=== PATIENT | female | born 1975 | race Caucasian/White ===

== ENCOUNTER 2021-06-22 16:20 | Outpatient (REF) | payer MEDICARE, MEDICAID, SELFPAY | END 2021-06-22 16:21 | disposition home or self-care (01) | LOC: HO.LNP 16:20 | PROVIDERS: Visit Provider Physician Assistant Medical | DX: Z20.822 Contact with and (suspected) exposure to COVID-19 (principal) | CPT/HCPCS: U0003; U0005 ==

== ENCOUNTER → 2022-04-27 12:56 | Outpatient (BNVA) | payer MEDICARE, MEDICAID, SELFPAY | PROVIDERS: PCP Internal Medicine; Visit Provider Nurse Practitioner Family | DX: G47.9 Sleep disorder, unspecified (principal); G47.21 Circadian rhythm sleep disorder, delayed sleep phase type; G25.81 Restless legs syndrome; R06.83 Snoring; R40.0 Somnolence | CPT/HCPCS: 99202 ==

== ENCOUNTER → 2022-05-18 20:43 | Outpatient (REF) | payer MEDICARE, MEDICAID, SELFPAY | LOC: HO.SL 20:43 | PROVIDERS: Visit Provider Nurse Practitioner Family | DX: G47.9 Sleep disorder, unspecified (principal); G47.21 Circadian rhythm sleep disorder, delayed sleep phase type; G25.81 Restless legs syndrome; R06.83 Snoring; R40.0 Somnolence | CPT/HCPCS: 95810 ==

== ENCOUNTER → 2022-06-27 12:49 | Outpatient (BNVA) | payer MEDICARE, MEDICAID, SELFPAY | PROVIDERS: Visit Provider Nurse Practitioner Family | DX: G25.81 Restless legs syndrome (principal); G47.21 Circadian rhythm sleep disorder, delayed sleep phase type | CPT/HCPCS: 99212 ==

== ENCOUNTER 2025-02-03 13:15 | Outpatient (AMB) | payer MEDICARE, MEDICAID, SELFPAY ==
[2025-02-03 13:17] VITALS: PULSE 82; O2SAT 98; BMI 34.2
--- NOTE | 2025-02-03 13:17 | MHC.OFFVIS ---
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 Patient was last seen 06/2022. Patient states hard time falling asleep. Insomnia and RLS are bad.(has list of medication of tried medication). Sleep study was done after appt in 2021. Pt also has MS. no witnessed apnea/snoring. Accompanied by: Self / Same As Patient Allergies latex (LATEX) Allergy (Unknown, Verified 02/03/25 13:21) RASH HPI Comments Details: 49 y/o female patient with MS on ofatumumab/ Kesimpta presents for follow up of PSG sleep study and insomnia. 2021- PSG sleep study result was significant for frequent periodic limb movements for PLM index of 49/hr but only few were associated with arousals. She is a current smoker over the last few months 2 or less cigarettes /day. She denies falls and gets off balance when changing position, gets nausea and vertigo with inverted positions. Goes to bed at 11pm, can not fall asleep until 3am ruminates all night long, brain will not turn off. She has RLS and it keeps her up all night, she finds relief with Tizanidine and Magnesium. Pt states that she has jerky leg movements and wakes up frequently. She has tried many medications including malatonin, gabapentin, ropinirole, pramipexole, baclofen and clonazepam to manage restless legs symptoms but nothing helped. Pt is not sure about the dosage, but remember that she did not tolerate gabapentin. ? Finally a video on [employer], demonstrated tying a sock around her foot, and this alleviated the RLS symptoms of neuropathy. She still has the symptoms of burning, tingling and jumping legs however infrequently now 2-3/month. Her mood is very relaxed, she is an easy going individual. Memory is poor with brainfog, and word finding difficulties, can't process information. She tried therapy in the past to deal with childhood trauma, however it made her thoughts raw , and more persistent at night. She can stay up until 4am reading and is constantly fatigued then gets depressed. [facility] Medical History Emphysema lung COPD (chronic obstructive pulmonary disease) Surgical History Status post breast reduction Family History Mother Lung cancer Diabetes Brother Diabetes Social History Alcohol intake: current Alcohol intake frequency: a few times a month Patient Tobacco Use Status: Current everyday Tobacco user Substance Use Type: Marijuana Review of Systems ENT Reports Normal hearing present Neuro Reports Normal hearing present Physical Exam Vital Signs: Last Vital Signs Pulse 82 02/03/25 13:17 Pulse Ox 98 02/03/25 13:17 Oxygen Delivery Method Room Air 02/03/25 13:17 BMI result Body Mass Index 34.2 Const General: cooperative and tired appearing Nutritional Appearance: overweight Orientation/consciousness: patient oriented x3 Neck Neck: Yes full ROM and Yes supple Resp Effort & Inspection: normal respiratory effort and able to speak in complete sentences Neuro General: patient oriented x3 Cranial nerves: Yes Bilaterally intact EOM present, Yes Midline tongue present, Yes Normal hearing present, Yes Ability to bilaterally rotate head present and Yes Ability to bilaterally elevate shoulders present Cognition (Neuro): normal cognition Gait exam (Neuro): Normal gait present Psych Appearance: grossly normal Mental Status: mental status grossly normal Speech and movement: Normal speech and movement present Affect: normal affect Results Reviewed Results Reviewed: PSG Assessment & Plan Assessment & Plan (1) Insomnia: Code(s): G47.00 - Insomnia, unspecified Category: Medical Qualifiers: Insomnia type: primary Qualified Code(s): F51.01 - Primary insomnia (2) Restless legs syndrome: Comment: tizanidine and magnesium hepls along with her sock tying trick. Code(s): G25.81 - Restless legs syndrome Category: Medical (3) Delayed sleep phase syndrome: Code(s): G47.21 - Circadian rhythm sleep disorder, delayed sleep phase type Category: Medical (4) Excessive daytime sleepiness: Comment: CBC/CMP/ LFT / B12/ Ferritin / Code(s): G47.19 - Other hypersomnia Category: Medical (5) Daytime sleepiness: Code(s): R40.0 - Somnolence Category: Medical Plan PSG to evaluate for [place], she has not been in office since 2021. Patient education provided re: sleep hygiene Read the book Say Good Night to Insomnia and practice the 6 weeks sleep hygiene program. [employer] life coach. Jessica. [email or web address] sleep specialist. Labs : LFT - CBC- Ferritin- Nika - MS managed by [facility] Dr. Drew and Nicole Wilkinson. MRI annually for lesions. She is on Kesimptaa pen 20 mg sub qhs monthly. Orders: Orders RT PSG in-lab sleep study 02/03/25 G25.81 - Restless legs syndrome, G47.19 - Other hypersomnia Vitamin D 25-OH Total Today F51.01 - Primary insomnia, G25.81 - Restless legs syndrome Complete Blood Count no Diff Today F51.01 - Primary insomnia, G25.81 - Restless legs syndrome Comprehensive Met. Panel Today F51.01 - Primary insomnia, G25.81 - Restless legs syndrome Drug Screen Urine Today F51.01 - Primary insomnia, G25.81 - Restless legs syndrome, G47.19 - Other hypersomnia Vitamin B12 and Folate Today F51.01 - Primary insomnia, G25.81 - Restless legs syndrome Homocysteine Today G47.9 - Sleep disorder, unspecified, R53.83 - Other fatigue Methylmalonic Acid Today G47.9 - Sleep disorder, unspecified, R53.83 - Other fatigue Medications: New eszopiclone (Lunesta) take one mg of Lunesta daily 1 hour prior to bedtime. 1 mg PO BEDTIME 1 month 30 tabs 0RF insomnia MDD 1mg G47.00 - Insomnia, unspecified, R40.0 - Somnolence Patient Instructions: Sleep Hygiene provided: set a scheduled bedtime and wake time to help regulate the circadian rhythm and balance the release of pituitary hormones. Sleep in a dark room, temperatures below 68 degrees, and no devices n bed. Limit caffeinated products 6 hours prior to bed, and limit fluids 2-4 hours prior to bed. Gentle night yoga, diffusing essential oils, and playing soft music can be relaxing. Coding Level of Care Code New Pt Level 4 (94762) Diagnoses Primary insomnia F51.01 Insomnia type: primary Restless legs syndrome G25.81 Delayed sleep phase syndrome G47.21 Excessive daytime sleepiness G47.19 Daytime sleepiness R40.0 Time Spent (min) 30 Comment evaluation Sleep Questionnaire Difficulty falling asleep: Yes Difficulty staying asleep?: Yes Number of arousals: >5 Snoring: Yes Witnessed apneas: No Gasping arousals: No Nocturia: No GERD: No Vivid dreams: No Acting out dreams: No Abnormal behavior in sleep: No Abnormal movements in sleep: Yes (rls/ plmd) Morning headaches: No Excessive daytime sleepiness: Yes Daytime naps: Yes Restless legs: Yes Hallucinations: No Sleep paralysis: No Drop attacks: No Sleep Study: Yes CPAP: No
--- OUTSIDE RECORDS SUMMARY | 2025-02-03 13:58 | XMS_ITS | Clinical Summary ---
Author Organization 175 [facility] Address [address] [place] [address] Phone Care Team Providers Care Railway Switchman Name Role Phone Misti Perkins MD Primary Care Provider [phone] Allergies Active Allergy Reactions Criticality Noted Date Comments Latex 12/31/2020 Medications buPROPion XL (WELLBUTRIN XL) 300 mg 24 hr tablet 1 po qd 05/25/20 23 Active tiZANidine (ZANAFLEX) 4 mg capsule Take 1 capsule (4 mg total) by mouth 3 (three) times a day. Active Ofatumumab (Kesimpta Pen) 20 mg/0.4 mL pen injector injection Inject 0.4 mL (20 mg total) under the skin every 30 (thirty) days. 0.4 mL 5 5 1:13 PM EDT 09/06/19 25 Active prazosin (MINIPRESS) 1 mg capsule Take 1 capsule (1 mg total) by mouth 3 (three) times a day. Active riboflavin (VITAMIN B2) 400 mg tablet Take 1 tablet (400 mg total) by mouth 1 (one) time each day. 60 tablet 2 09/28/19 25 Active ergocalcifero l (VITAMIN D-2) 1,250 mcg (50,000 unit) capsule Take 1 capsule (50,000 Units total) by mouth 1 (one) time per week. 4 each 10/09/19 25 026 Active albuterol HFA (PROAIR HFA ; PROVENTIL HFA ; VENTOLIN HFA) 90 mcg/actuation inhaler Inhale 2 puffs by mouth every 6 (six) hours if needed for wheezing. 6.7 g 10/19/19 026 Active fluticasone propionate (FLONASE) 50 mcg/actuation nasal spray Administer 1 spray into each nostril 1 (one) time each day. Shake gently. Before first use, prime pump. After use, clean tip and replace cap. 16 g 10/19/19 026 Active Additional Information Patient not taking.Reported on 01/20/2025 ramelteon (ROZEREM) 8 mg tablet TAKE 1 TABLET EVERY DAY BY ORAL ROUTE AT BEDTIME FOR 30 DAYS, FOR INSOMNIA. 10/08/19 25 Active ibuprofen (ADVIL,MOTRIN ) 600 mg tablet Take 1 tablet (600 mg total) by mouth every 8 (eight) hours if needed for mild pain. 30 tablet 3 11/22/19 25 Active magnesium oxide (MAG-OX) 400 mg (241.3 elemental magnesium) tablet TAKE 1 TABLET BY MOUTH 1 TIME EACH DAY. 30 tablet 2 12/31/19 25 Active tirzepatide, weight loss, (Zepbound) 5 mg/0.5 mL injection INJECT 0.5 ML (5 MG TOTAL) UNDER THE SKIN EVERY 7 DAYS 2 mL 01/14/20 25 Active amphetamine-d extroamphetam ine (ADDERALL) 10 mg tablet 1 po bid 60 each 01/14/20 25 Active fluticasone-u meclidinium-v ilanterol (Trelegy Ellipta) 100-62.5-25 mcg inhaler Inhale 1 puff (100 mcg total) by mouth 1 (one) time each day. Rinse mouth with water after use to reduce aftertaste and incidence of candidiasis. Do not swallow. 1 each 01/21/20 026 Active mirtazapine (REMERON) 7.5 mg tablet Take 1 tablet (7.5 mg total) by mouth every night at bedtime. 025 Discontinued(Th erapy completed) traZODone (DESYREL) 50 mg tablet 09/30/19 23 025 Discontinued(Th erapy completed) PARoxetine (PAXIL) 10 mg tablet Take 1 tablet (10 mg total) by mouth at bedtime. 04/23/20 24 025 Discontinued(Th erapy completed) SUMAtriptan (IMITREX) 50 mg tablet Take 1 tablet (50 mg total) by mouth 1 (one) time if needed for migraine (may repeat x1) for up to 1 dose. May repeat dose once in 2 hours if no relief. Do not exceed 2 doses in 24 hours. 9 tablet 3 09/28/19 25 025 Discontinued( erapy completed) tirzepatide, weight loss, (Zepbound) 5 mg/0.5 mL injection Inject 0.5 mL (5 mg total) under the skin every 7 (seven) days. 2 mL 12/14/19 25 025 Discontinued amphetamine-d extroamphetam ine (ADDERALL) 10 mg tablet 1 po bid 60 each 12/17/19 25 025 Discontinued(Re order) azithromycin (Zithromax Z-Vignesh) 250 mg tablet Take 2 tablets (500 mg total) by mouth 1 (one) time each day for 1 day, THEN 1 tablet (250 mg total) 1 (one) time each day for 4 days. 6 each 01/21/20 25 025 Active Problems Problem Noted Date Diagnosed Date RLS (restless legs syndrome) 09/26/2024 Other hyperlipidemia 09/26/2024 Class 1 obesity with serious comorbidity and body mass index (BMI) of 31.0 to 31.9 in adult 09/26/2024 Vitamin D deficiency 12/18/2013 Multiple sclerosis, relapsin g-remitting ([facility] V24, [facility] V28) 12/17/2013 Overview (09/22/2024): Diagnosed in 11/2013, follows with Dr armstrong, was given IV Solumedrol for 3 days.Started on Copaxone injections As of January 2021, sees [place] Encounters Date Type Department Care Team Description 01/27/2025 3:00 PM EDT Nutrition Bariatric Surgery - [address] [phone] Angelina Bishop, SHANNON Class 1 obesity with serious comorbidity and body mass index (BMI) of 31.0 to 31.9 in adult, unspecified obesity type (Primary Dx) 01/20/2025 2:15 PM EDT Office Visit Pulmonolgy - [place] 175 [facility] [address] [place] [address] Heydi Aviles MD Chronic obstructive pulmonary disease, unspecified COPD type (CMS/HCC V24, CMS/HCC V28) (Primary Dx); Multiple sclerosis, relapsing-remitting ([facility]/HCC V24, CMS/HCC V28) 01/13/2025 Telephone [facility] 175 [facility] [address] [place] [phone] Sona Plasencia PA 12/31/2024 1:30 PM EDT Office Visit [facility] 175 [facility] [address] [place] [phone] Sona Plasencia PA Multiple sclerosis ([facility] V24, [facility] V28) (Primary Dx) 12/10/2024 2:14 PM EDT - 12/10/2024 11:59 PM EDT Hospital Encounter [facility] CT Scan [address] [place] [phone] Encounter for screening for malignant neoplasm of respiratory organs; Nicotine dependence, cigarettes, uncomplicated Discharge Disposition: Home or Self Care 12/10/2024 1:45 PM EDT Office Visit Lung Screening Program - [place] [address] [facility] [address] [place] [phone] Ana Heath, ELISABETH Tobacco abuse 11/27/2024 2:00 PM EDT Nutrition Bariatric Surgery - [place] 175 [facility] [address] [place] [phone] Angelina Bishop, SHANNON Class 1 obesity without serious comorbidity with body mass index (BMI) of 33.0 to 33.9 in adult, unspecified obesity type (Primary Dx) 11/21/2024 2:00 PM EDT Ancillary Procedure Pulmonolgy - [place] 175 [facility] [address] [place] [phone] CARRERA (dyspnea on exertion); Tobacco abuse 11/20/2024 1:30 PM EDT Office Visit Obstetrics & Gynecology - [address] [phone] Ruthie Calles CNM Encounter for well woman exam with routine gynecological exam (Primary Dx); Screening breast examination; Screening for cervical cancer; Current tobacco use from Last 3 Months Immunizations Name Administration Dates Next Due Influenza trivalent, 0.5mL, preservative free (Fluarix; FluLaval; Fluzone) ages 6mo and older (Afluria) 3 years and older 04/20/2015,05/21/2014,04/12/2012 Tdap Tetanus diptheria acell ular pertussis (Boostrix; Adacel) 7yo and older 12/15/2014 Surgical History Surgery Date Site/Laterality Comments BREAST SURGERY REDUCTION MAMMAPLASTY SCREENING MAMMOGRAM 03/28/2023 Bilateral Medical History Medical History Date Comments MS (multiple sclerosis) ([facility] V24, [facility] V28) DX:MS (multiple sclerosis) ( [facility]) Vitamin D deficiency 12/18/2013 RLS (restless legs syndrome) 09/26/2024 Family History Medical History Relation Name Comments Diabetes Brother No Known Problems Maternal Grandfather Stroke Maternal Grandmother Diabetes Mother Lung cancer Mother Multiple sclerosis Neg Hx Relation Name Status Comments Brother Alive Maternal Grandfather Alive Maternal Grandmother Mother Social History Tobacco Use Types Packs/Day Years Used Date Smoking Tobacco: Every Day Cigarettes 1 32.6 Started: 1992 Smokeless Tobacco: Current Comments:Smoking 2 cigs cipriano y Alcohol Use Standard Drinks/Week Comments Yes 0 (1 standard drink = 0.6 oz pur e alcohol) Comments No Sex and Gender Information Value Date Recorded Sex Assigned at Not on file Legal Sex Female 8:19 PM EST Gender Identity Not on file Sexual Orientation Not on file Obstetrics History Para Term AB IAB SAB Ectopic Multiple Livin g Live Births 1 1 1 1 1 Date Outcome GA Total Labor Labor/2nd/3rd Weight Sex Type Anes PTL Zamzam A1 A5 Name Clin 2001 Term M Vag-S pont Living Last Filed Vital Signs Vital Sign Reading Time Taken Comments Blood Pressure 126/82 01/20/2025 2:54 PM EDT Pulse 90 01/20/2025 2:54 PM EDT Temperature 36.4 C (97.6 F) 01/20/2025 2:54 PM EDT Respiratory Rate 20 01/20/2025 2:54 PM EDT Oxygen Saturation 95% 01/20/2025 2:54 PM EDT Inhaled Oxygen Concentration - - Weight 84.4 kg (186 lb) 01/27/2025 2:56 PM EDT Height 162.6 cm (5' 4 ) 01/20/2025 2:54 PM EDT Body Mass Index 31.93 01/20/2025 2:54 PM EDT Plan of Treatment Upcoming Encounters Date Type Department Care Team (Late st Contact Info) Description 02/20/2025 2:00 PM EDT Office Visit Bariatric Surgery - [place] [address] [phone] Tiffanie Garcia MD [address] [phone] 03/13/2025 1:40 PM EDT Appointment Radiology Department [address] [phone] 04/24/2025 2:30 PM EDT Nutrition Bariatric Surgery - [place] [address] [phone] Angelina Bishop, RD [address] [phone] 05/28/2025 3:45 PM EST Office Visit Pulmonolgy - [place] [address] [phone] Heydi Aviles MD [address] [phone] 07/03/2025 3:30 PM EST Office Visit [facility] [place] [address] [phone] Dale Bauman MD [address] [phone] Health Maintenance Due Date Last Done Comments Hepatitis B Vaccines (1 of 3 - 19+ 3-dose series) 1993 Pneumococcal Vaccine: 50+ Years (1 of 2 - PCV) 1993 Colorectal Cancer Screening: Colonoscopy 06/24/2022 HIV Screening 06/24/2022 Hepatitis C Screening 06/24/2022 Medicare Annual Wellness Visit 06/24/2022 Social Influencers of Health Screening 06/24/2022 COVID-19 Vaccine ( - season) 2024 Depression Screening 07/17/2024 Zoster Vaccines (1 of 2) 2024 DTaP,Tdap,and Td Vaccines (2 - Td or Tdap) 12/15/2024 12/15/2014 Influenza Vaccine (#1) 2025 5, 05/21/2014, 04/12/2012 Lung Cancer Screening (Low Dose CT) 12/10/2025 12/10/2024 Breast Cancer Screening 03/11/2026 03/11/20 24, 03/11/2024, 03/21/2023, Additional history exists Cholesterol Screening (Lipid Panel) 09/26/2029 09/26/2024 Cervical Cancer Screening: HPV 11/20/2029 11/20/2024 HIB Vaccines Aged Out No longer eligi ble based on patient's age to complete this topic HPV Vaccines Aged Out No longer eligi ble based on patient's age to complete this topic Hepatitis A Vaccines Aged Out No long er eligible based on patient's age to complete this topic IPV Vaccines Aged Out No longer eligi ble based on patient's age to complete this topic MMR Vaccines Aged Out No longer eligi ble based on patient's age to complete this topic Meningococcal ACWY Vaccine Aged Out N o longer eligible based on patient's age to complete this topic Meningococcal B Vaccine Aged Out No l onger eligible based on patient's age to complete this topic RSV Immunization Patients Under 20 months Aged Out No longer eligible based on patient's age to complete this topic Varicella Vaccines Aged Out No longer eligible based on patient's age to complete this topic Procedures Procedure Name Priority Date/Time Associated Diagnosis Comments CT LUNG SCREENING Routine 12/10/2024 2:3 8 PM EDT Encounter for screening for malignant neoplasm of respiratory organs Nicotine dependence, cigarettes, uncomplicated PULMONARY FUNCTION TESTING Routine 11/21/2024 2:25 PM EDT CARRERA (dyspnea on exertion) Tobacco abuse PAP SMEAR Routine 11/20/2024 1:39 PM EDT Encounter for well woman exam with routine gynecological exam Screening for cervical cancer HPV WITH REFLEX GENOTYPE Routine 11/20/2024 1:39 PM EDT Encounter for well woman exam with routine gynecological exam Screening for cervical cancer LIPID PANEL WITH REFLEX TO DIRECT LDL Routine 09/26/2024 8:49 AM EDT Other hyperlipidemia SCREENING MAMMOGRAPHY BI 2-VIEW BREAST INC CAD Routine 03/11/2024 11:03 AM EDT Encounter for screening mammogram for malignant neoplasm of breast from Last 3 Months or Most Recently Relevant to Health Maintenance Results * CT Lung Screening (12/10/2024 2:38 PM EDT) Anatomical Region Laterality Modality Chest Computed Tomogra phy 12/10/2024 3:23 PM EDT Impressions 12/10/2024 3:26 PM EDT Lung RADS 1. No suspicious pulmonary nodule. Guidelines recommend repeat low-dose screening CT in 12 months. -------- FINAL REPORT -------- Dictated By: Michael Palma Dictated Date: 12/10/2024 15:23 ET Assigned Physician: Michael Palma Reviewed and Electronically Signed By: Michael Palma Signed Date: 12/10/2024 15:26 ET Workstation ID: [id number] Transcribed By: Self Edit Transcribed Date: 12/10/2024 15:23 ET Narrative 12/10/2024 3:26 PM EDT PROCEDURE: Low-dose CT of the chest without intravenous contrast. TECHNIQUE: Low-dose CT of the chest without intravenous contrast administration. Coronal and sagittal reformats and MIP reconstructions were created. Dose length product: 172 mGy-cm. HISTORY: Lung cancer screening, >=20 pk yr current smoker (Age 50-80y) COMPARISON: None. FINDINGS: Lungs/pleura: The central airways are normal in caliber. There is mild bronchial wall thickening and mucus plugging involving the small caliber airways in both lower lobes. Mild centrilobular emphysema. No suspicious pulmonary nodule. No pleural effusion or pneumothorax. Mediastinum/dona: No mediastinal mass or lymphadenopathy. No appreciable hilar lymphadenopathy on limited noncontrast evaluation. Vasculature: Normal caliber pulmonary arteries. Mild atherosclerotic calcifications of the great vessels. Cardiac: Normal heart size. Minimal coronary artery calcification. Chest wall: No axillary or supraclavicular lymphadenopathy. Limited abdomen: Unremarkable. Bones: Mild degenerative changes of the spine. Procedure Note Michael Palma MD - 12/10/2024 PROCEDURE: Low-dose CT of the chest without intravenous contrast. TECHNIQUE: Low-dose CT of the chest without intravenous contrastadministration. Coronal and sagittal reformats and MIP reconstructionswere created. Dose length product: 172 mGy-cm. HISTORY: Lung cancer screening, >=20 pk yr current smoker (Age 50-80y) COMPARISON: None. FINDINGS: Lungs/pleura: The central airways are normal in caliber. There is mildbronchial wall thickening and mucus plugging involving the small caliberairways in both lower lobes. Mild centrilobular emphysema. No suspiciouspulmonary nodule. No pleural effusion or pneumothorax. Mediastinum/dona: No mediastinal mass or lymphadenopathy. No appreciablehilar lymphadenopathy on limited noncontrast evaluation. Vasculature: Normal caliber pulmonary arteries. Mild atheroscleroticcalcifications of the great vessels. Cardiac: Normal heart size. Minimal coronary artery calcification. Chest wall: No axillary or supraclavicular lymphadenopathy. Limited abdomen: Unremarkable. Bones: Mild degenerative changes of the spine. IMPRESSION: Lung RADS 1. No suspicious pulmonary nodule. Guidelines recommend repeatlow-dose screening CT in 12 months. -------- FINAL REPORT -------- Dictated By: Michael Palma Dictated Date: 12/10/2024 15:23 ET Assigned Physician: Michael Palma Reviewed and Electronically Signed By: Michael Palma Signed Date: 12/10/2024 15:26 ET Workstation ID: [id number] Transcribed By: Self Edit Transcribed Date: 12/10/2024 15:23 ET us Fina Sebastian MD IMG CT PROCEDURES Final Result * Pulmonary function testing: Spirometry with Bronchodilator, Carbon Monoxide Diffusing Capacity (11/21/2024 2:25 PM EDT) Impressions Mary Falcon MD - 11/21/2024 2:25 PM EDT FEV1/FVC 67%. FEV1 1.21 at 43%. FVC 51%. Good bronchodilator response. TLC 83%. RV 127%. DLCO 71% (adjusted 96%). Severe obstruction w/ air trapping. No restriction. And no decrease in diffusion. Findings consistent with severe obstructive lung disease. us Heydi Aviles MD PFT ORDERABLES Final Result * HPV with reflex genotype (11/20/2024 1:39 PM EDT) HPV Negative Negative LAB MICROBIOLOGY METHOD 11/22/2024 8:[address] [facility] Brushing/Spatula Cervix uteri structure / Unknown 11/20/2024 1:39 PM EDT 11/21/2024 7:31 AM EDT [place]ie [place] LAB MOLECULAR DIAGNOSTICS ORD ERABLES Final Result [facility] [address] [place] [address], [place] [phone] * (ABNORMAL) Pap smear (11/20/2024 1:39 PM EDT) Interpretation Atypical squamous cells of undetermined significance(A) 11/28/2024 3:[address] [facility] General Categorization Epithelial cell abnormality, see interpretation 11/28/2024 3:10 PM EDT [facility] Other Findings Shift in ani suggestive of bacterial vaginosis Atrophy 11/28/2024 3:[address] [facility] Specimen Adequacy Satisfactory for evaluation, endocervical/tra nsformation zone component present 11/28/2024 3:[address] [facility] Pap Methodology Liquid Based Pap Test 11/28/2024 3:[address] [facility] Disclaimer The Pap test is a screening test which carries an inherent false negative rate. These test results should be correlated with the patient's clinical findings and history. This Pap test was processed using an automated screening system. Technical cytopathology services provided by [facility], at [address] [place] [id number] (CLIA # [id number]/Lori Chen MD, Babbitt Spinner.) 11/28/2024 3:[address] [facility] Console Pap Interpretation Reported 11/28/2024 3:[address] [facility] Brushing/Spatula Cervix uteri structure / Unknown 11/20/2024 1:39 PM EDT 11/21/2024 7:31 AM EDT Ruthie Calles [facility] CYTOLOGY ORDERABLES Final Result [facility] [address] [place] [address], * (ABNORMAL) Lipid panel with reflex to direct LDL (09/26/2024 8:49 AM EDT) Cholesterol 217(H) 0 - 200 mg/dL LAB CHEMISTRY METHOD 09/26/2024 1:[address] [facility] Triglycerides 138 0 - 150 mg/dL LAB CHEMISTRY METHOD 09/26/2024 1:[address] [facility] HDL 58 >=40 mg/dL LAB CHEMISTRY METHOD 09/26/2024 1:[address] [facility] LDL Calculated 131(H) 0 - 100 mg/dL LAB CHEMISTRY METHOD 09/26/2024 1:[address] [facility] VLDL Cholesterol Marcial 27.6 mg/dL LAB CHEMISTRY METHOD 09/26/2024 1:[address] [facility] Non HDL Chol. (LDL+VLDL) 159(H) <145 mg/dL LAB CHEMISTRY METHOD 09/26/2024 1:[address] [facility] Chol/HDL Ratio 3.7 0.0 - 4.4 LAB CHEMISTRY METHOD 09/26/2024 1:[address] [facility] Blood Venous blood specimen / Unknown Venipuncture / Unknown 09/26/2024 8:49 AM EDT 09/26/2024 8:49 AM EDT us Misti Perkins MD LAB BLOOD ORDERABLES Final Resul t [facility] [address] [place] [address], [place] [phone] * SCREENING MAMMOGRAPHY BI 2-VIEW BREAST INC CAD (03/11/2024 11:03 AM EDT) Anatomical Region Laterality Modality Radiographic Micaela ging 03/06/2023 2:13 PM EDT Narrative 03/12/2024 12:45 PM EDT This is a summary report. The complete report is available in the patient's medical record. If you cannot access the medical record, please contact the sending organization for a detailed fax or copy. BILATERAL 3D DIGITAL SCREENING MAMMOGRAM History: Routine screening. No current breast complaints. Comparison: Multiple priors dating back to 03/01/2021 Technique: Bilateral full-field digital 3D mammography was performed using standard CC and MLO projections CAD was used to evaluate this mammogram. Findings: Density: There are scattered areas of fibroglandular density-B RIGHT: No suspicious masses, groups of microcalcification or areas of architectural distortion identified. Stable typically benign parenchymal asymmetries LEFT: No suspicious masses, groups of microcalcifications or areas of architectural distortion identified. Stable typically benign parenchymal asymmetries IMPRESSION: : 1. No mammographic evidence of malignancy. BI-RADS Category 2 benign findings Recommendation: Routine annual screening mammography is recommended Procedure Note Dulce Akers MD - 06/10/2024 This is a summary report. The complete report is available in thepatient's medical record. If you cannot access the medical record, pleasecontact the sending organization for a detailed fax or copy. BILATERAL 3D DIGITAL SCREENING MAMMOGRAM History: Routine screening. No current breast complaints. Comparison: Multiple priors dating back to 03/01/2021 Technique: Bilateral full-field digital 3D mammography was performed usingstandard CC and MLO projections CAD was used to evaluate this mammogram. Findings: Density: There are scattered areas of fibroglandular density-B RIGHT: No suspicious masses, groups of microcalcification or areas ofarchitectural distortion identified. Stable typically benign parenchymalasymmetries LEFT: No suspicious masses, groups of microcalcifications or areas ofarchitectural distortion identified. Stable typically benign parenchymalasymmetries IMPRESSION: : 1. No mammographic evidence of malignancy. 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
--- OUTSIDE RECORDS SUMMARY | 2025-02-03 13:58 | XMS_ITS | Clinical Summary ---
Author Organization [facility] Address [address] [place] [address] Care Team Providers Care Esl Tutor Name Role Phone Provider, Not In System Primary Care Provider Un available Allergies Active Allergy Reactions Criticality Noted Date Comments Latex 12/31/2020 Medications Medication Sig Dispensed Refills Start Date End Date Status traZODone (DESYREL) 50 MG tablet 0 09/29/2022 Active ergocalciferol (VITAMIN D2) capsule 82426 units Take 1 capsule (50,000 Units total) by mouth once a week. 12 capsule 0 04/11/2023 Active ibuprofen 600 MG tablet TAKE 1 TABLET BY MOUTH UP TO THREE TIMES DAILY WITH FOOD 60 tablet 1 11/14/2023 Active Kesimpta 20 MG/0.4ML SOAJ 0 03/14/2024 Active amphetamine-dextroam phetamine (ADDERALL, 10MG,) 10 MG tablet 1-2 po qd 60 tablet 0 04/08/2024 Active buPROPion (WELLBUTRIN XL) 300 MG 24 hr tabletIndications:Mu ltiple sclerosis (HCC) TAKE 1 TABLET BY MOUTH EVERY DAY 30 tablet 5 05/04/2024 Active Family History Medical History Relation Name Comments Stroke Maternal Grandmother Cancer Mother Diabetes Mother Multiple sclerosis Neg Hx Relation Name Status Comments Maternal Grandmother Mother Social History Tobacco Use Types Packs/Day Years Used Date Smoking Tobacco: Some Days Smokeless Tobacco: Never Tobacco Cessation:Ready to Q uit: Not Asked; Counseling Given: Not Answered Sex and Gender Information Value Date Recorded Sex Assigned at Female 04/25/2023 11:13 AM EDT Gender Identity Not on file Sexual Orientation Not on file Job Start Date Occupation Industry Not on file Not on file Not on file Last Filed Vital Signs Vital Sign Reading Time Taken Comments Blood Pressure 119/80 04/08/2024 1:36 PM EDT Pulse 82 04/08/2024 1:36 PM EDT Temperature 36 C (96.8 F) 04/08/2024 1:36 PM EDT Respiratory Rate 16 06/06/2023 9:23 AM EST Oxygen Saturation 94% 12/12/2023 2:32 PM EDT Inhaled Oxygen Concentration - - Weight 87.3 kg (192 lb 6.4 oz) 12/12/2023 2:32 P M EDT Height 162.6 cm (5' 4 ) 12/12/2023 2:32 PM EDT Body Mass Index 33.03 12/12/2023 2:32 PM EDT Plan of Treatment Health Maintenance Due Date Last Done Comments Hepatitis B Vaccines (1 of 3 - 3-dose series) 1974 Hepatitis C Screening 1974 COVID-19 Vaccine (#1) 01/28/1975 Pneumococcal Vaccine (1 of 2 - PCV) 1980 Depression Screening 1986 BMI Counseling 1992 Preventative Health Evaluation 1992 Tobacco Cessation Counseling 1992 Cervical Cancer Screening (P ap Smear) 1995 Colon Cancer Screening (Colonoscopy) 2019 Breast Cancer Screening (Mammogram) 2024 Shingrix-Zoster Vaccine (1 of 2) 2024 DTap / Tdap / Td (2 - Td or Tdap) 12/15/2024 015 Influenza Vaccine (#1) 2025 RSV Ped < 20 months Aged Out No longe r eligible based on patient's age to complete this topic Advance Directives For more information, please contact: [phone] Documents on File Type Date Recorded 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
== END 2025-02-03 14:25 | disposition home or self-care (01) ==
LOC: HO.HSMS 13:16
PROVIDERS: Visit Provider Physician Assistant Medical
DX: F51.01 Primary insomnia (principal); G25.81 Restless legs syndrome; G47.21 Circadian rhythm sleep disorder, delayed sleep phase type; G47.19 Other hypersomnia; R40.0 Somnolence
CPT/HCPCS: 99204

== ENCOUNTER → 2025-02-03 13:15 | Outpatient (BNVA) | payer OTHER, SELFPAY | PROVIDERS: Visit Provider Physician Assistant Medical | DX: G25.81 Restless legs syndrome (principal); G47.00 Insomnia, unspecified; F51.01 Primary insomnia; G47.21 Circadian rhythm sleep disorder, delayed sleep phase type; G47.19 Other hypersomnia; R40.0 Somnolence | CPT/HCPCS: 99202 ==

== ENCOUNTER → 2025-03-16 20:30 | Outpatient (REF) | payer OTHER, SELFPAY ==
--- OUTSIDE RECORDS SUMMARY | 2025-03-13 13:39 | XMS_ITS | Encounter Summary ---
Author Organization [facility] Address [address] [place] [address] Care Team Providers Care Urban Planning Professor Name Role Phone Misti Perkins MD Primary Care Provider [phone] Reason for Visit * Imaging (Routine) - Pending Review Specialty Diagnoses / Procedures Referred By Lore salgado Referred To Contact Radiology Diagnoses Encounter for screening mammogram for breast cancer Procedures MG Mammo Digital Screening w Serjio bilat MG Mammo Digital Screening w Serjio bilat Misti Perkins MD [address] [place] [address] Phone: tel: fax: [facility] Referral ID Status Reason Start Date Expiration Date V isits Requested Visits Authorized [id number] Pending Review 05/02/2024 05/02/2025 1 1 Encounter Details Date Type Department Care Team (Latest Contact Info) Description 03/13/2025 1:39 PM EDT - 03/13/2025 11:59 PM EDT Hospital Encounter Radiology Department - [address] [phone] Encounter for screening mammogram for breast cancer Discharge Disposition: Home or Self Care Social History Tobacco Use Types Packs/Day Years Used Date Smoking Tobacco: Every Day Cigarettes 1 32.7 Started: 1992 Smokeless Tobacco: Current Comments:Smoking 2 cigs cipriano y Alcohol Use Standard Drinks/Week Comments Yes 0 (1 standard drink = 0.6 oz pur e alcohol) Comments No Sex and Gender Information Value Date Recorded Sex Assigned at Not on file Legal Sex Female 8:19 PM EST Gender Identity Not on file Sexual Orientation Not on file documented as of this encounter Medications at Time of Discharge albuterol HFA (PROAIR HFA ; PROVENTIL HFA ; VENTOLIN HFA) 90 mcg/actuation inhaler Inhale 2 puffs by mouth every 6 (six) hours if needed for wheezing. 6.7 g 11 10/18/2024 6 amphetamine-dextr oamphetamine (ADDERALL) 10 mg tablet 1 po bid 60 each 01/13/2025 buPROPion XL (WELLBUTRIN XL) 300 mg 24 hr tablet 1 po qd 05/25/2023 ergocalciferol (VITAMIN D-2) 1,250 mcg (50,000 unit) capsule Take 1 capsule (50,000 Units total) by mouth 1 (one) time per week. 4 each 10/08/2024 6 fluticasone propionate (FLONASE) 50 mcg/actuation nasal spray Administer 1 spray into each nostril 1 (one) time each day. Shake gently. Before first use, prime pump. After use, clean tip and replace cap. 16 g 11 10/18/2024 6 fluticasone-umecl idinium-vilantero l (Trelegy Ellipta) 100-62.5-25 mcg inhaler Inhale 1 puff (100 mcg total) by mouth 1 (one) time each day. Rinse mouth with water after use to reduce aftertaste and incidence of candidiasis. Do not swallow. 1 each 12 01/20/2025 6 ibuprofen (ADVIL,MOTRIN) 600 mg tablet TAKE 1 TABLET BY MOUTH EVERY 8 HOURS IF NEEDED FOR MILD PAIN. 60 tablet 1 02/18/2025 magnesium oxide (MAG-OX) 400 mg (241.3 elemental magnesium) tablet TAKE 1 TABLET BY MOUTH 1 TIME EACH DAY. 30 tablet 2 12/30/2024 Ofatumumab (Kesimpta Pen) 20 mg/0.4 mL pen injector injection Inject 1 pen (20 mg total) under the skin every 30 (thirty) days. 0.4 mL 5 03/13/2025 1:02 PM EDT 02/13/2025 ondansetron (ZOFRAN) 4 mg tabletIndications :Nausea TAKE 1 TABLET (4 MG TOTAL) BY MOUTH EVERY 8 HOURS IF NEEDED FOR NAUSEA OR VOMITING FOR UP TO 7 DAYS. 20 tablet 02/19/2025 prazosin (MINIPRESS) 1 mg capsule Take 1 capsule (1 mg total) by mouth 3 (three) times a day. ramelteon (ROZEREM) 8 mg tablet TAKE 1 TABLET EVERY DAY BY ORAL ROUTE AT BEDTIME FOR 30 DAYS, FOR INSOMNIA. 10/07/2024 riboflavin (VITAMIN B2) 400 mg tablet Take 1 tablet (400 mg total) by mouth 1 (one) time each day. 60 tablet 2 09/27/2024 tirzepatide, weight loss, (Zepbound) 7.5 mg/0.5 mL injectionIndicati ons:Class 1 obesity due to excess calories with body mass index (BMI) of 32.0 to 32.9 in adult, unspecified whether serious comorbidity present Inject 0.5 mL (7.5 mg total) under the skin every 7 (seven) days. 2 mL 1 02/20/2025 tiZANidine (ZANAFLEX) 4 mg capsule Take 1 capsule (4 mg total) by mouth 3 (three) times a day. documented as of this encounter Discharge Disposition Disposition Code Departure Means Destination Home or Self Care documented in this encounter Plan of Treatment Upcoming Encounters Date Type Department Care Team (Late st Contact Info) Description 04/24/2025 2:30 PM EDT Nutrition Bariatric Surgery - [place] [address] [facility] [address] [place] [phone] Angelina Bishop, RD [address] [facility] [address] [place] [phone] 05/28/2025 3:45 PM EST Office Visit Pulmonolgy - [place] [address] [facility] [address] [place] [phone] Heydi Aviles MD [address] [place] [address] 07/03/2025 3:30 PM EST Office Visit [facility] [place] [address] [facility] [address] [place] [phone] Dale Bauman MD [address] [place] [phone] 08/26/2025 4:00 PM EST Office Visit Bariatric Surgery - [address] [place] [address] Tiffanie Garcia MD [address] [place] [phone] documented as of this encounter Procedures Procedure Name Priority Date/Time Associated Diagnosis Comments MG MAMMO DIGITAL SCREENING W SERJIO BILAT Routine 03/13/2025 1:53 PM EDT Encounter for screening mammogram for breast cancer documented in this encounter Results * MG Mammo Digital Screening w Serjio bilat (03/13/2025 1:53 PM EDT) Anatomical Region Laterality Modality Breast Bilateral Mammography 03/15/2025 1:49 PM EDT Impressions 03/15/2025 1:52 PM EDT No mammographic evidence of malignancy. BI-RADS CATEGORY: 1 - NEGATIVE RECOMMENDATION: An annual bilateral screening mammogram. Mammo Location: [facility], [address] [place] [address], [address], . -------- FINAL REPORT -------- Dictated By: Sonia Valdivia Dictated Date: 03/15/2025 13:49 ET Assigned Physician: Sonia Valdivia Reviewed and Electronically Signed By: Sonia Valdivia Signed Date: 03/15/2025 13:52 ET Workstation ID: [id number] Transcribed By: Self Edit Transcribed Date: 03/15/2025 13:49 ET Narrative 03/15/2025 1:52 PM EDT Bilateral screening mammogram. CLINICAL: 49 years old, Female, routine annual exam. COMPARISON: Prior studies, latest 03/11/2024. TECHNIQUE: Bilateral MLO and CC views were obtained digitally with 2-D C views and 3-D mammogram (digital breast tomosynthesis). Computer-aided detection was utilized in evaluation of this exam (CAD). FINDINGS: There is no evidence of suspicious mass or architectural distortion. No worrisome calcifications are evident. There has been no significant change from prior exam(s). BREAST DENSITY: B - There are scattered areas of fibroglandular density. Procedure Note Sonia Valdivia MD - 03/15/2025 Bilateral screening mammogram. CLINICAL: 49 years old, Female, routine annual exam. COMPARISON: Prior studies, latest 03/11/2024. TECHNIQUE: Bilateral MLO and CC views were obtained digitally with 2-D Cviews and 3-D mammogram (digital breast tomosynthesis). Computer-aideddetection was utilized in evaluation of this exam (CAD). FINDINGS: There is no evidence of suspicious mass or architectural distortion. Noworrisome calcifications are evident. There has been no significantchange from prior exam(s). BREAST DENSITY: B - There are scattered areas of fibroglandular density. IMPRESSION: No mammographic evidence of malignancy. BI-RADS CATEGORY: 1 - NEGATIVE RECOMMENDATION: An annual bilateral screening mammogram. Mammo Location: [facility], [address] [place] [address], [address], . -------- FINAL REPORT -------- Dictated By: Sonia Valdivia Dictated Date: 03/15/2025 13:49 ET Assigned Physician: Sonia Valdivia Reviewed and Electronically Signed By: Sonia Valdivia Signed Date: 03/15/2025 13:52 ET Workstation ID: [id number] Transcribed By: Self Edit Transcribed Date: 03/15/2025 13:49 ET Misti Perkins MD IMG BI PROCEDURES Final Result documented in this encounter Visit Diagnoses Diagnosis Encounter for screening mammogram for breast cancer documented in this encounter Care Teams Urban Planning Professor Relationship Specialty Start Date End Date Misti Perkins MD [address] [place] [phone] PCP - General Internal Medicine 12/25/20 documented as of this encounter
--- OUTSIDE RECORDS SUMMARY | 2025-03-16 21:19 | XMS_ITS ---
Author Name [facility] Organization Unknown Care Team Organization Name Specialty Phone Email Start Date End Da te [facility] Shante Sauer Primary Care 12/23/20222023 [facility] NICKI CAVAZOS Primary Care 07/25/2022 03/04/2024
--- OUTSIDE RECORDS SUMMARY | 2025-03-16 21:19 | XMS_ITS | Clinical Summary ---
Author Organization [facility] Address [address] [place] [address] Care Team Providers Care Sales Promoter Name Role Phone Provider, Not In System Primary Care Provider Un available Allergies Active Allergy Reactions Criticality Noted Date Comments Latex 12/31/2020 Medications Medication Sig Dispensed Refills Start Date End Date Status traZODone (DESYREL) 50 MG tablet 0 09/29/2022 Active ergocalciferol (VITAMIN D2) capsule 53539 units Take 1 capsule (50,000 Units total) [...] Advance Directives For more information, please contact: [phone] Documents on File Type Date Recorded 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
--- OUTSIDE RECORDS SUMMARY | 2025-03-16 21:19 | XMS_ITS | Clinical Summary ---
Author Organization 175 [facility] Address [address] [place] [address] Phone Care Team Providers Care Intelligence Support Officer Name Role Phone Misti Perkins MD Primary Care Provider [phone] Allergies Active Allergy Reactions Criticality Noted Date Comments Latex 12/31/2020 Medications buPROPion XL (WELLBUTRIN XL) 300 mg 24 hr tablet 1 po qd 05/25/20 23 Active tiZANidine (ZANAFLEX) 4 mg capsule Take 1 capsule (4 mg total) by mouth 3 (three) times a day. Active prazosin (MINIPRESS) 1 mg capsule Take 1 capsule (1 mg total) by mouth 3 (three) times a day. Active riboflavin (VITAMIN B2) 400 mg tablet Take 1 tablet (400 mg total) by mouth 1 (one) time each day. 60 tablet 2 09/28/19 25 Active ergocalciferol (VITAMIN D-2) 1,250 mcg (50,000 unit) capsule Take 1 capsule (50,000 Units total) by mouth 1 (one) time per week. 4 each 10/09/19 25 026 Active albuterol HFA (PROAIR HFA ; PROVENTIL HFA ; VENTOLIN HFA) 90 mcg/actuation inhaler Inhale 2 puffs by mouth every 6 (six) hours if needed for wheezing. 6.7 g 10/19/19 25 026 Active fluticasone propionate (FLONASE) 50 mcg/actuation nasal spray Administer 1 spray into each nostril 1 (one) time each day. Shake gently. Before first use, prime pump. After use, clean tip and replace cap. 16 g 11 10/19/19 25 026 Active Additional Information Patient not taking.Reported on 01/20/2025 ramelteon (ROZEREM) 8 mg tablet TAKE 1 TABLET EVERY DAY BY ORAL ROUTE AT BEDTIME FOR 30 DAYS, FOR INSOMNIA. 10/08/19 25 Active magnesium oxide (MAG-OX) 400 mg (241.3 elemental magnesium) tablet TAKE 1 TABLET BY MOUTH 1 TIME EACH DAY. 30 tablet 2 12/31/19 25 Active amphetamine-de xtroamphetamin e (ADDERALL) 10 mg tablet 1 po bid 60 each 01/14/20 25 Active fluticasone-um eclidinium-chitra anterol (Trelegy Ellipta) 100-62.5-25 mcg inhaler Inhale 1 puff (100 mcg total) by mouth 1 (one) time each day. Rinse mouth with water after use to reduce aftertaste and incidence of candidiasis. Do not swallow. 1 each 01/21/20 25 026 Active Ofatumumab (Kesimpta Pen) 20 mg/0.4 mL pen injector injection Inject 1 pen (20 mg total) under the skin every 30 (thirty) days. 0.4 mL 5 5 1:02 PM EDT 02/14/20 25 Active ondansetron (ZOFRAN) 4 mg tabletIndicati ons:Nausea TAKE 1 TABLET (4 MG TOTAL) BY MOUTH EVERY 8 HOURS IF NEEDED FOR NAUSEA OR VOMITING FOR UP TO 7 DAYS. 20 tablet 02/20/20 25 Active ibuprofen (ADVIL,MOTRIN) 600 mg tablet TAKE 1 TABLET BY MOUTH EVERY 8 HOURS IF NEEDED FOR MILD PAIN. 60 tablet 1 02/19/20 25 Active tirzepatide, weight loss, (Zepbound) 7.5 mg/0.5 mL injectionIndic ations:Class 1 obesity due to excess calories with body mass index (BMI) of 32.0 to 32.9 in adult, unspecified whether serious comorbidity present Inject 0.5 mL (7.5 mg total) under the skin every 7 (seven) days. 2 mL 1 02/21/20 25 Active mirtazapine (REMERON) 7.5 mg tablet Take 1 tablet (7.5 mg total) by mouth every night at bedtime. 025 Discontinued(T herapy completed) traZODone (DESYREL) 50 mg tablet 09/30/19 23 025 Discontinued(T herapy completed) PARoxetine (PAXIL) 10 mg tablet Take 1 tablet (10 mg total) by mouth at bedtime. 04/23/20 24 025 Discontinued(T herapy completed) ibuprofen (ADVIL,MOTRIN) 600 mg tablet Take 1 tablet (600 mg total) by mouth every 8 (eight) hours if needed for mild pain. 30 tablet 3 11/22/19 25 025 Discontinued tirzepatide, weight loss, (Zepbound) 5 mg/0.5 mL injection INJECT 0.5 ML (5 MG TOTAL) UNDER THE SKIN EVERY 7 DAYS 2 mL 01/14/20 25 025 Discontinued ondansetron (ZOFRAN) 4 mg tabletIndicati ons:Nausea Take 1 tablet (4 mg total) by mouth every 8 (eight) hours if needed for nausea or vomiting for up to 7 days. 20 tablet 02/07/20 25 025 Discontinued tirzepatide, weight loss, (Zepbound) 5 mg/0.5 mL injection INJECT 0.5 ML (5 MG TOTAL) UNDER THE SKIN EVERY 7 DAYS 2 mL 02/20/20 25 025 Discontinued(D ose adjustment) Active Problems Problem Noted Date Diagnosed Date RLS (restless legs syndrome) 09/26/2024 Other hyperlipidemia 09/26/2024 Class 1 obesity with serious comorbidity and body mass index (BMI) of 31.0 to 31.9 in adult 09/26/2024 Vitamin D deficiency 12/18/2013 Multiple sclerosis, relapsin g-remitting ([facility] V24, CMS/[facility] V28) 12/17/2013 Overview (09/22/2024): Diagnosed in 11/2013, follows with Dr armstrong, was given IV Solumedrol for 3 days.Started on Copaxone injections As of January 2021, iván Ku Encounters Date Type Department Care Team Description 03/13/2025 1:39 PM EDT - 03/13/2025 11:59 PM EDT Hospital Encounter Radiology Department - [address] [address] Encounter for screening mammogram for breast cancer Discharge Disposition: Home or Self Care 03/11/2025 Telephone [facility] [address] [facility] [address] [place] [phone] Heydi Aviles MD 02/20/2025 2:00 PM EDT Office Visit Bariatric Surgery [address] [place] [phone] Tiffanie Garcia MD Class 1 obesity due to excess calories with body mass index (BMI) of 32.0 to 32.9 in adult, unspecified whether serious comorbidity present (Primary Dx) 02/06/2025 Telephone Bariatric Surgery [address] [phone] Tiffanie Garcia MD 02/04/2025 Telephone Bariatric Surgery [address] [place] [phone] Tiffanie Garcia MD 01/27/2025 3:00 PM EDT Nutrition Bariatric Surgery [address] [place] [phone] Angelina Bishop, SHANNON Class 1 obesity with serious comorbidity and body mass index (BMI) of 31.0 to 31.9 in adult, unspecified obesity type (Primary Dx) 01/20/2025 2:15 PM EDT Office Visit [facility] [address] [place] [phone] Heydi Aviles MD Chronic obstructive pulmonary disease, unspecified COPD type (CMS/HCC V24, CMS/HCC V28) (Primary Dx); Multiple sclerosis, relapsing-remitting (CMS/HCC V24, CMS/HCC V28) 01/13/2025 Telephone [facility] [place] [address] [facility] [address] [place] [phone] Sona Plasencia PA 12/31/2024 1:30 PM EDT Office Visit [facility] [address] [place] [address] Sona Plasencia PA Multiple sclerosis ([facility] V24, [facility] V28) (Primary Dx) from Last 3 Months Immunizations Name Administration Dates Next Due Influenza trivalent, 0.5mL, preservative free (Fluarix; FluLaval; Fluzone) ages 6mo and older (Afluria) 3 years and older 04/20/2015,05/21/2014,04/12/2012 Tdap Tetanus diptheria acell ular pertussis (Boostrix; Adacel) 7yo and older 12/15/2014 Surgical History Surgery Date Site/Laterality Comments BREAST SURGERY REDUCTION MAMMAPLASTY SCREENING MAMMOGRAM 03/28/2023 Bilateral Medical History Medical History Date Comments MS (multiple sclerosis) ([facility] V24, [facility] V28) DX:MS (multiple sclerosis) ( [facility]) Vitamin D deficiency 12/18/2013 RLS (restless legs [...] Sign Reading Time Taken Comments Blood Pressure 107/70 02/20/2025 2:20 PM EDT Pulse 83 02/20/2025 2:20 PM EDT Temperature 36.6 C (97.8 F) 02/20/2025 2:20 PM EDT Respiratory Rate 20 01/20/2025 2:54 PM EDT Oxygen Saturation 95% 01/20/2025 2:54 PM EDT Inhaled Oxygen Concentration - - Weight 85.3 kg (188 lb) 02/20/2025 2:20 PM EDT Height 162.6 cm (5' 4 ) 02/20/2025 2:20 PM EDT Body Mass Index 32.27 02/20/2025 2:20 PM EDT Plan of Treatment Upcoming Encounters Date Type Department Care Team (Late st Contact Info) Description 04/24/2025 2:30 PM EDT Nutrition Bariatric Surgery - [place] 175 [facility] [address] [place] [phone] Angelina Bishop, RD 175 [facility] [address] [place] [phone] 05/28/2025 3:45 PM EST Office Visit Pulmonolgy - [place] 175 [facility] [address] [place] [phone] Heydi Aviles MD [address] [place] [address] 07/03/2025 3:30 PM EST Office Visit [facility] [place] [address] [facility] [address] [place] [phone] Dale Bauman MD [address] [place] [address] 08/26/2025 4:00 PM EST Office Visit Bariatric Surgery - [place] [address] [facility] [address] [place] [phone] Tiffanie Garcia MD [address] [place] [phone] Health Maintenance Due Date Last Done Comments Hepatitis B Vaccines (1 of 3 - 19+ 3-dose series) 1993 Pneumococcal Vaccine: 50+ Years (1 of 2 - PCV) 1993 Colorectal Cancer Screening: Colonoscopy 06/24/2022 HIV Screening 06/24/2022 Hepatitis C Screening 06/24/2022 Medicare Annual Wellness Visit 06/24/2022 Social Influencers of Health Screening 06/24/2022 COVID-19 Vaccine ( season) 2024 Depression Screening 07/17/2024 Zoster Vaccines (1 of 2) 2024 DTaP,Tdap,and Td Vaccines (2 - Td or Tdap) 12/15/2024 12/15/2014 Influenza Vaccine (#1) 2025 5, 05/21/2014, 04/12/2012 Lung Cancer Screening (Low Dose CT) 12/10/2025 12/10/2024 Breast Cancer Screening 03/13/2027 03/13/20, 03/11/2024, 03/11/2024, Additional history exists Cholesterol Screening (Lipid Panel) [...] Encounter for screening mammogram for breast cancer [id number] Routine 02/20/2025 2 :41 PM EDT Chronic obstructive pulmonary disease, unspecified COPD type (CMS/HCC V24, CMS/HCC V28) THYROID STIMULATING HORMONE Routine 02/20/2025 2:41 PM EDT Class 1 obesity due to excess calories with body mass index (BMI) of 34.0 to 34.9 in adult, unspecified whether serious comorbidity present CT LUNG SCREENING Routine 12/10/2024 2:3 8 PM EDT Encounter for screening for malignant neoplasm of respiratory organs Nicotine dependence, cigarettes, uncomplicated HPV WITH REFLEX GENOTYPE Routine 11/20/2024 1:39 PM EDT Encounter for well woman exam with routine gynecological exam Screening for cervical cancer LIPID PANEL WITH REFLEX TO DIRECT LDL Routine 09/26/2024 8:49 AM EDT Other hyperlipidemia from Last 3 Months or Most Recently Relevant to Health Maintenance Results * MG Mammo Digital Screening w Serjio bilat (03/13/2025 1:53 PM EDT) Anatomical Region Laterality Modality Breast Bilateral Mammography 03/15/2025 1:49 PM EDT Impressions 03/15/2025 1:52 PM EDT No mammographic evidence of malignancy. BI-RADS CATEGORY: 1 - NEGATIVE RECOMMENDATION: An annual bilateral screening mammogram. Mammo Location: [facility], [address] [place] [address], [address], . -------- FINAL REPORT -------- Dictated By: Sonia Valdivia Dictated Date: 03/15/2025 13:49 ET Assigned Physician: Sonia Valdivia Reviewed and Electronically Signed By: Sonia Valdivia Signed Date: 03/15/2025 13:52 ET Workstation ID: [id number] Transcribed By: Self Edit Transcribed Date: 03/15/2025 [...] An annual bilateral screening mammogram. Mammo Location: [facility], [address] [place] [address], [address], . -------- FINAL REPORT -------- Dictated By: Sonia Valdivia Dictated Date: 03/15/2025 13:49 ET Assigned Physician: Sonia Valdivia Reviewed and Electronically Signed By: Sonia Valdivia Signed Date: 03/15/2025 13:52 ET Workstation ID: [id number] Transcribed By: Self Edit Transcribed Date: 03/15/2025 13:49 ET Misti Perkins MD IMG BI PROCEDURES Final Result * [id number] (02/20/2025 2:41 PM EDT) A-1 Antitrypsin 166 90 - 200 mg/dL LAB CHEMISTRY METHOD 02/20/2025 6:56 PM EDT [facility] ([facility]) [facility] Blood Venous blood specimen / Unknown Venipuncture / Unknown 02/20/2025 2:41 PM EDT 02/20/2025 2:41 PM EDT us Heydi Aviles MD LAB BLOOD ORDERABLES Final Resul t Performing Organization Address [facility]/ZIP Co de Phone Number [facility] [address] [place] [address], [place] [phone] * Thyroid stimulating hormone (02/20/2025 2:41 PM EDT) TSH 1.46 0.40 - 4.00 mcIU/mL LAB CHEMISTRY METHOD 02/20/2025 7:30 PM EDT [facility] Blood Venous blood specimen / Unknown Venipuncture / Unknown 02/20/2025 2:41 PM EDT 02/20/2025 2:41 PM EDT us Tiffanie Garcia MD LAB BLOOD ORDERABLES Final R esult Performing Organization Address [facility] Co de Phone Number [facility] [address] [place] [address], [place] [phone] * CT Lung Screening (12/10/2024 2:38 PM [...] Signed Date: 12/10/2024 15:26 ET Workstation ID: [id number] Transcribed By: Self Edit Transcribed Date: 12/10/2024 [...] Signed Date: 12/10/2024 15:26 ET Workstation ID: [id number] Transcribed By: Self Edit Transcribed Date: 12/10/2024 15:23 ET us Fina Sebastian MD IMG CT PROCEDURES Final Result * HPV with reflex genotype (11/20/2024 1:39 PM EDT) Pathologist [facility] HPV Negative Negative LAB MICROBIOLOGY METHOD 11/22/2024 8:52 AM EDT [facility] Brushing/Spatula Cervix uteri structure / Unknown 11/20/2024 1:39 PM EDT 11/21/2024 7:31 AM EDT [place] LAB MOLECULAR DIAGNOSTICS ORD ERABLES Final Result [facility] [address] [place] [address], [place] [phone] * (ABNORMAL) Lipid panel with reflex to direct LDL (09/26/2024 8:49 AM EDT) Pathologist [facility] Cholesterol 217(H) 0 - 200 mg/dL LAB CHEMISTRY METHOD 09/26/2024 1:06 PM EDT [facility] Triglycerides 138 0 - 150 mg/dL LAB CHEMISTRY METHOD 09/26/2024 1:06 PM EDT [facility] HDL 58 >=40 mg/dL LAB CHEMISTRY METHOD 09/26/2024 1:06 PM EDT [facility] LDL Calculated 131(H) 0 - 100 mg/dL LAB CHEMISTRY METHOD 09/26/2024 1:06 PM EDT [facility] VLDL Cholesterol Marcial 27.6 mg/dL LAB CHEMISTRY METHOD 09/26/2024 1:06 PM EDT [facility] Non HDL Chol. (LDL+VLDL) 159(H) <145 mg/dL LAB CHEMISTRY METHOD 09/26/2024 1:06 PM EDT [facility] Chol/HDL Ratio 3.7 0.0 - 4.4 LAB CHEMISTRY METHOD 09/26/2024 1:06 PM EDT [facility] Blood Venous blood specimen / Unknown Venipuncture / Unknown 09/26/2024 8:49 AM EDT 09/26/2024 8:49 AM EDT us Misti Perkins MD LAB BLOOD ORDERABLES Final Resul t [facility] [address] [place] [address], from Last 3 Months or Most Recently Relevant to Health Maintenance Insurance [facility] MEDICARE Member Subscriber Plan / Payer (Ef fective 2023-Present) Name:ROXANN SANCHEZ Relation to Subscriber:Self Name:Roxann Sanchez Payer ID:[id number] Group ID:[id number] Type:Not on file Address: [place] [address] [address] [phone] Advance Directives Documents on File Type Date Recorded Patient Global Program Manager Expl anation Health Care Decision (hx) 12/31/2020 NIDHI RAE DIRECTIVE Care Teams Intelligence Support Officer Relationship Specialty Start Date End Date Misti Perkins MD [address] [place] [address] PCP - General Internal Medicine 12/25/20
--- OUTSIDE RECORDS SUMMARY | 2025-03-16 21:19 | XMS_ITS | Encounter Summary ---
Author Organization [facility] Address [address] [place] [address] Care Team Providers Care Data Integration Analyst Name Role Phone Misti Perkins MD Primary Care Provider [phone] Reason for Visit * Reason Onset Date Comments Medication Problem 03/11/2025 Encounter Details Date Type Department Care Team ([facility] Contact Info) Description 03/11/2025 Telephone [facility] [address] [place] [address] Heydi Aviles MD [address] [place] [phone] Social History Tobacco Use Types Packs/Day Years [...] on file documented as of this encounter Progress Notes * Heydi Aviles MD - 03/11/2025 4:38 PM EDT Spoke to her - ask her to take zyrtec. On flonase and trelegy * Lauren Sherwood - 03/11/2025 12:12 PM EDT Patient called requesting that her her FLUTICASONE nose spray gets changed to fluticasone inhaler ,can this be possible? Also patient is experiencing gunk in the back of her throat. As patient states that Flonase dry the nose but its not working her the back of her throat. documented in this encounter Plan of Treatment Upcoming Encounters Date Type Department Care Team (Late st Contact Info) Description 04/24/2025 2:30 PM EDT Nutrition Bariatric Surgery - [place] 175 [facility] [address] [place] [phone] Angelina Bishop, RD 175 [facility] [address] [place] [phone] 05/28/2025 3:45 PM EST Office Visit Pulmonolgy - [place] 175 [facility] [address] [place] [phone] Heydi Aviles MD [address] [place] [address] 07/03/2025 3:30 PM EST Office Visit [facility] [place] [address] [facility] [address] [place] [phone] Dale Bauman MD [address] [place] [address] 08/26/2025 4:00 PM EST Office Visit Bariatric Surgery - [place] 175 [facility] [address] [place] [phone] Tiffanie Garcia MD [address] [place] [address] documented as of this encounter Visit Diagnoses Not on filedocumented in this encounter Care Teams Data Integration Analyst Relationship Specialty Start Date End Date Misti Perkins MD [address] [place] [address] PCP - General Internal Medicine 12/25/20 documented as of this encounter
== END ==
LOC: HO.SL 20:30
PROVIDERS: PCP Internal Medicine; Visit Provider Physician Assistant Medical
DX: G25.81 Restless legs syndrome (principal); G47.19 Other hypersomnia; G47.61 Periodic limb movement disorder; Z53.8 Procedure and treatment not carried out for other reasons
CPT/HCPCS: 95810

== ENCOUNTER 2025-05-28 12:47 | Outpatient (AMB) | payer OTHER, SELFPAY ==
--- NOTE | 2025-05-28 12:53 | MHC.OFFVIS ---
Vital Signs 05/28/25 12:54 Height 5 ft 2 in Weight 177 lb BMI 32.4 BP 116/72 Blood Pressure Location Lt brachial Position Sitting Pulse 78 Pulse Source Pulse Oximeter Pulse Oximetry (%) 95 Oxygen Delivery Method Room Air Intake Visit Reasons: 3 mo follow up (CONF.) Intake Note: Patient presents follow up Sleep. PSG in chart(AHI-0, ORIANA-91%. Frequent PLM causing sleep disruption. Check Ferritin, TSH, B-12,D, CBC,CMP). Patient states couldnt sleep during PSG. Accompanied by: Self / Same As Patient Allergies latex (LATEX) Allergy (Unknown, Verified 05/28/25 12:56) RASH HPI Comments Details: 49 y/o female patient with MS on Kesimpta therapy presents for follow up of PSG sleep study. 04/2025 PSG insufficient sleep recorded 23% sleep efficiency, Periodic Limb Movements of Sleep index 26/hr. N3 25 min and REM 0. There were 53 arousals and 48.9/hr, 0 respiratory arousals, 29 leg movement arousals, 24 spontaneous, and 0 snore arousals. 04/2022-PSG sleep study result was significant for frequent periodic limb movements for PLM index of 49/hr but only few were associated with arousals. She is being followed by the [facility] for MS, no new lesions on MRI and denies falls, gets off balance when changing positions. Denies vision changes, diplopia or pain with lateral gaze or movement of eyes. She is chronically fatigued, she recently was diagnosed with COPD and started on Ellipta, this improved breathing and post nasal drip. She is a smoker over the last few months 2 or less cigarettes /day. She goes to bed at 11pm, can not fall asleep until 3am, ruminates all night, unable to turn her brain off. Since starting lunesta 1mg po at 9pm, her sleep has improved, she is able to get 2 hours of sleep, still has difficulty staying asleep through the night, once awake, she reads until 4am, starts her day and or sleeps until noon during the day. She continues to take adderall 20mg daily, and 5mg of dexosyn for ADHD. She has RLS with constant urge to move the legs, and jerky leg movements, twitch at night and keeps her up all night, Tizanidine 4mg po at bedtime improves her symptoms, she discontinued magensium as it was ineffective. She has tried many medications including melatonin, gabapentin, ropinirole, pramipexole, baclofen and clonazepam to manage PLMS/ RLS but nothing helps. Will write her a rx for Nidra. Finally a video on [employer], demonstrated tying a sock around her foot, and this alleviated the RLS symptoms temporarily. Her mood is stable, feels depressed and lacks the motivation to do anything, just sleeps and is trapped in a vicious cycle . Memory is poor has brain fog, and word finding difficulties, can't process information as fast as she used to. She tried therapy in the past to deal with childhood trauma, however it made her emotions raw , disliked talk therapy, and sleep worsened. [facility] Medical History Emphysema lung COPD (chronic obstructive pulmonary disease) Surgical History Status post breast reduction Family History Mother Lung cancer Diabetes Brother Diabetes Social History Alcohol intake: current Alcohol intake frequency: a few times a month Patient Tobacco Use Status: Current everyday Tobacco user Substance Use Type: Marijuana Review of Systems ENT Reports Normal hearing present Neuro Reports Normal hearing present Physical Exam Vital Signs: Last Vital Signs Pulse 78 05/28/25 12:54 BP 116/72 05/28/25 12:54 Pulse Ox 95 05/28/25 12:54 Oxygen Delivery Method Room Air 05/28/25 12:54 BMI result Body Mass Index 32.4 Const General: cooperative, comfortable, no acute distress and tired appearing Nutritional Appearance: overweight Orientation/consciousness: patient oriented x3 HEENT Face and sinus: Yes face symmetric Teeth and gingiva: other (mallampti score is 3) Eyes Pupils: Equal, round and reactive pupils present Resp Effort & Inspection: normal respiratory effort and able to speak in complete sentences Neuro General: patient oriented x3 and moves all extremities Cranial nerves: Yes Equal, round and reactive pupils present, Yes Bilaterally intact EOM present, Yes Midline tongue present, Yes Normal hearing present, Yes Ability to bilaterally rotate head present and Yes Ability to bilaterally elevate shoulders present Cognition (Neuro): normal cognition Gait exam (Neuro): Antalgic gait present Motor exam (neuro): Abnormal motor strength present and Abnormal muscle tone present Deep tendon reflexes (DTR's): Right triceps reflex intensity grade: 2+, Left triceps reflex intensity grade: 2+, Rt Biceps (C5, C6): 2+, Left biceps reflex intensity grade: 2+, Right brachioradialis reflex intensity grade: 2+, Left brachioradialis reflex intensity grade: 2+, Right patellar reflex intensity grade: 2+ and Left patellar reflex intensity grade: 2+ Coordination: [id number] test normal Psych Appearance: grossly normal Speech and movement: Normal speech and movement present Affect: normal affect Attitude: cooperative Thought content: Normal thought content present Insight: Good insight present (Psych) Results Reviewed Results Reviewed: PSG in chart(AHI-0, ORIANA-91%. Frequent PLM causing sleep disruption. Check Ferritin, TSH, B-12,D, CBC,CMP) Assessment & Plan Assessment & Plan (1) Excessive daytime sleepiness: Comment: CBC/CMP/ LFT / B12/ Ferritin / Code(s): G47.19 - Other hypersomnia Category: Medical (2) Periodic limb movements of sleep: Comment: tried anticonvulsants, dopamine agonists, will write her a rx for nidra. Code(s): G47.61 - Periodic limb movement disorder Category: Medical (3) Restless legs syndrome: Comment: tizanidine 4mg and sock trick Code(s): G25.81 - Restless legs syndrome Category: Medical (4) Fatigue due to depression: Code(s): F32.A - Depression, unspecified; R53.83 - Other fatigue Category: Medical (5) Insomnia: Code(s): G47.00 - Insomnia, unspecified Category: Medical Qualifiers: Insomnia type: primary Qualified Code(s): F51.01 - Primary insomnia (6) Delayed sleep phase syndrome: Code(s): G47.21 - Circadian rhythm sleep disorder, delayed sleep phase type Category: Medical (7) Daytime sleepiness: Code(s): R40.0 - Somnolence Category: Medical Plan Repeat PSG to evaluate for [place], sleep efficiency is 23%, snoring is mild, N3 25min and no REM sleep.PLMD 26.8/hr. Patient education provided re: sleep hygiene. PLMD/ PLMS / RLS Continue Lunesta 1mg po daily as sleep has improved to 2-3 hour blocks. Will increase Lunesta to 2mg po daily RLS will write rx for Nidra Tonic Motor Activation Stimulator. Read the book Say Good Night to Insomnia and practice the 6 weeks sleep hygiene program. 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 Labs : LFT - CBC- CMP -Ferritin- TSH Vit D/ B12/ Folate/ Homo/ MMA Nika - print labs for pt. MS managed by [facility] on Kesimpta Pen 20mg once subq monthly, MRI annually. She is on Kesimpta 20 mg subq monthly. Orders: Orders Comprehensive Met. Panel 05/28/25 G25.81 - Restless legs syndrome, G47.61 - Periodic limb movement disorder Vitamin D 25-OH Total 05/28/25 G25.81 - Restless legs syndrome, G47.61 - Periodic limb movement disorder Homocysteine 05/28/25 R53.83 - Other fatigue, G47.9 - Sleep disorder, unspecified, G25.81 - Restless legs syndrome, G47.61 - Periodic limb movement disorder RT PSG in-lab sleep study 05/28/25 G47.19 - Other hypersomnia, G47.61 - Periodic limb movement disorder Complete Blood Count no Diff 05/28/25 G25.81 - Restless legs syndrome, G47.61 - Periodic limb movement disorder Ferritin 05/28/25 G25.81 - Restless legs syndrome, G47.61 - Periodic limb movement disorder Vitamin B12 and Folate 05/28/25 G25.81 - Restless legs syndrome, G47.61 - Periodic limb movement disorder TSH reflex Free T4 05/28/25 G25.81 - Restless legs syndrome, G47.61 - Periodic limb movement disorder Methylmalonic Acid 05/28/25 R53.83 - Other fatigue, G47.9 - Sleep disorder, unspecified, G25.81 - Restless legs syndrome, G47.61 - Periodic limb movement disorder Medications: New magnesium oxide 400 mg PO DAILY 90 tabs 0RF rls 3 months MDD 400mg F32.A - Depression, unspecified, R53.83 - Other fatigue, G25.81 - Restless legs syndrome, R40.0 - Somnolence [Nidra RLS Relief] As directed 1 ea 0RF Periodic Limb movement G47.61 - Periodic limb movement disorder, G25.81 - Restless legs syndrome Changed From eszopiclone take one mg of Lunesta daily 1 hour prior to bedtime. 1 mg PO BEDTIME 1 month 30 tabs 0RF insomnia MDD 1mg R40.0 - Somnolence, G47.00 - Insomnia, unspecified To eszopiclone take one mg of Lunesta daily 1 hour prior to bedtime. 2 mg PO BEDTIME 30 tabs 1RF insomnia 1 month MDD 1mg R40.0 - Somnolence, G47.00 - Insomnia, unspecified Patient Instructions: Please complete the following fasting labs to rule out deficiencies. CBC/CMP/ B12/ Vit D/ TSH/ Homocysteine and MMA/ Ferritin. Sleep Hygiene provided: set a scheduled bedtime and wake time to help regulate the circadian rhythm and balance the release of pituitary hormones. Sleep in a dark room, temperatures below 68 degrees, and no devices n bed. Limit caffeinated products 6 hours prior to bed, and limit fluids 2-4 hours prior to bed. Gentle night yoga, diffusing essential oils, and playing soft music can be relaxing. PSG to repeat r/o [place]. Increase Lunesta to 2mg po daily 1 hour prior to bedtime, in two weeks, message me on the portal re: sleep, if you are not sleeping, we will add Ambien for the upcoming sleep in lab study to r/o [place]. RLS / PLMD will send DME rx for Nidra as she has failed treatment with Gabapentin / Lyrica/ etc. Coding Level of Care Code Est Pt Level 4 (18888) Diagnoses Excessive daytime sleepiness G47.19 Periodic limb movements of sleep G47.61 Restless legs syndrome G25.81 Fatigue due to depression F32.A; R53.83 Primary insomnia F51.01 Insomnia type: primary Delayed sleep phase syndrome G47.21 Daytime sleepiness R40.0
[2025-05-28 12:54] VITALS: BP 116/72; PULSE 78; O2SAT 95; BMI 32.4
--- OUTSIDE RECORDS SUMMARY | 2025-05-28 15:24 | XMS_ITS | Encounter Summary ---
Author Organization [facility] Address [address] [place] [address] Care Team Providers Care Music Leader Name Role Phone Misti Perkins MD Primary Care Provider [phone] Reason for Visit * Reason Onset Date Comments Med Refill 05/21/2025 Zepbound Encounter Details Date Type Department Care Team ([facility] Contact Info) Description 05/21/2025 Telephone Bariatric Surgery - [address] [place] [address] Tiffanie Garcia MD [address] [place] [phone] Social History Tobacco Use Types Packs/Day Years Used Date Smoking Tobacco: Every Day Cigarettes 1 32.9 Started: 1992 Smokeless Tobacco: Current Comments:Smoking 2 [...] as of this encounter Progress Notes * Claudia Gurrola - 05/21/2025 12:01 PM EST Patient did well on Zepbound 10 mgs and would like a refill with titration. If appropriate, please send script for Zepbound 12.5 mgs to their pharmacy. The patient does have a follow up in 08/26/2025 documented in this encounter Plan of Treatment Upcoming Encounters Date Type Department Care Team (Late st Contact Info) Description 05/28/2025 3:45 PM EST Office Visit Pulmonology - [place] [facility] [address] [place] [phone] Heydi Aviles MD [address] [place] [phone] 07/03/2025 3:30 PM EST Office Visit [facility] - [place] [address] [facility] [address] [place] [phone] Dale Bauman MD [address] [place], [place] [phone] 08/26/2025 4:00 PM EST Office Visit Bariatric Surgery - [place] [address] [facility] [address] [place] [phone] Tiffanie Garcia MD [address] [place] [phone] documented as of this encounter Visit Diagnoses Not on filedocumented in this encounter Care Teams Music Leader Relationship Specialty Start Date End Date Misti Perkins MD [address] [place] [address] PCP - General Internal Medicine 12/25/20 documented as of this encounter
--- OUTSIDE RECORDS SUMMARY | 2025-05-28 15:25 | XMS_ITS | Clinical Summary ---
Author Organization [facility] Address [address] [place] [address] Phone Care Team Providers Care Economics Faculty Member Name Role Phone Misti Perkins MD Primary Care Provider [phone] Allergies Active Allergy Reactions Criticality Noted Date Comments Latex 12/31/2020 Medications buPROPion XL (WELLBUTRIN XL) 300 mg 24 hr tablet 1 po qd 3 Active prazosin (MINIPRESS) 1 mg capsule Take 1 capsule (1 mg total) by mouth 3 (three) times a day. Active riboflavin (VITAMIN B2) 400 mg tablet Take 1 tablet (400 mg total) by mouth 1 (one) time each day. 60 tablet 2 5 Active ergocalciferol (VITAMIN D-2) 1,250 mcg (50,000 unit) capsule Take 1 capsule (50,000 Units total) by mouth 1 (one) time per week. 4 each 11 5 026 Active albuterol HFA (PROAIR HFA ; PROVENTIL HFA ; VENTOLIN HFA) 90 mcg/actuation inhaler Inhale 2 puffs by mouth every 6 (six) hours if needed for wheezing. 6.7 g 11 5 026 Active fluticasone propionate (FLONASE) 50 mcg/actuation nasal spray Administer 1 spray into each nostril 1 (one) time each day. Shake gently. Before first use, prime pump. After use, clean tip and replace cap. 16 g 11 5 026 Active Additional Information Patient not taking.Reported on 01/20/2025 ramelteon (ROZEREM) 8 mg tablet TAKE 1 TABLET EVERY DAY BY ORAL ROUTE AT BEDTIME FOR 30 DAYS, FOR INSOMNIA. 5 Active fluticasone-um eclidinium-chitra anterol (Trelegy Ellipta) 100-62.5-25 mcg inhaler Inhale 1 puff (100 mcg total) by mouth 1 (one) time each day. Rinse mouth with water after use to reduce aftertaste and incidence of candidiasis. Do not swallow. 1 each 12 5 026 Active Ofatumumab (Kesimpta Pen) 20 mg/0.4 mL pen injector injection Inject 1 pen (20 mg total) under the skin every 30 (thirty) days. 0.4 mL 5 05/05/2025 1:22 PM EDT 5 Active ondansetron (ZOFRAN) 4 mg tabletIndicati ons:Nausea TAKE 1 TABLET BY MOUTH EVERY 8 HOURS NEEDED FOR NAUSEA AND VOMITING FOR UP TO 7 DAYS 20 tablet 5 Active magnesium oxide (MAG-OX) 400 mg (241.3 elemental magnesium) tablet TAKE 1 TABLET BY MOUTH EVERY DAY 30 tablet 2 5 Active amphetamine-de xtroamphetamin e (ADDERALL) 10 mg tablet 1 po bid 60 each 5 Active tiZANidine (ZANAFLEX) 4 mg tablet Take 1 tablet (4 mg total) by mouth 3 (three) times a day. 30 tablet 2 5 Active ibuprofen (ADVIL,MOTRIN) 600 mg tablet Take 1 tablet (600 mg total) by mouth every 8 (eight) hours if needed for mild pain. 60 tablet 1 5 Active tirzepatide, weight loss, (Zepbound) 12.5 mg/0.5 mL injection Inject 0.5 mL (12.5 mg total) under the skin every 7 (seven) days. 2 mL 5 025 Active mirtazapine (REMERON) 7.5 mg tablet Take 1 tablet (7.5 mg total) by mouth every night at bedtime. 025 Discontinu ed(Therapy completed) traZODone (DESYREL) 50 mg tablet 3 025 Discontinu ed(Therapy completed) PARoxetine (PAXIL) 10 mg tablet Take 1 tablet (10 mg total) by mouth at bedtime. 4 025 Discontinu ed(Therapy completed) tirzepatide, weight loss, (Zepbound) 10 mg/0.5 mL injection Inject 0.5 mL (10 mg total) under the skin every 7 (seven) days. 2 mL 5 025 Active Problems Problem Noted Date Diagnosed Date RLS (restless legs syndrome) 09/26/2024 Other hyperlipidemia 09/26/2024 Class 1 obesity with serious comorbidity and body mass index (BMI) of 31.0 to 31.9 in adult 09/26/2024 Vitamin D deficiency 12/18/2013 Multiple sclerosis, relapsing-remitting 12/18/19 14 Overview (09/22/2024): Diagnosed in 11/2013, follows with Dr armstrong, was given IV Solumedrol for 3 days.Started on Copaxone injections As of January 2021, sees [place] Encounters Date Type Department Care Team Description 05/21/2025 Telephone Bariatric Surgery - [place] [address] [facility] [address] [place] [address] Tiffanie Garcia MD 03/13/2025 1:39 PM EDT - 03/13/2025 11:59 PM EDT Hospital Encounter Radiology Department [address] [phone] Encounter for screening mammogram for breast cancer Discharge Disposition: Home or Self Care 03/11/2025 Telephone Pulmonology - [place] [address] [facility] [address] [place] [address] Heydi Aviles MD from Last 3 Months Immunizations Immunization Administration Dates Next Due Influenza trivalent, 0.5mL, preservative free (Fluarix; FluLaval; Fluzone) ages 6mo and older (Afluria) 3 years and older 04/20/2015,05/21/2014,04/12/2012 Tdap Tetanus diptheria acell ular pertussis (Boostrix; Adacel) 7yo and older 12/15/2014 Surgical History Surgery Date Site/Laterality Comments BREAST SURGERY REDUCTION MAMMAPLASTY SCREENING MAMMOGRAM 03/28/2023 Bilateral Medical History Medical History Date Comments MS (multiple sclerosis) DX:MS (m ultiple sclerosis) (HCC) Vitamin D deficiency 12/18/2013 RLS (restless legs [...] 3:45 PM EST Office Visit Pulmonology - [place] [address] [place] [phone] Heydi Aviles MD [address] [place] [address] 07/03/2025 3:30 PM EST Office Visit [facility] [place] - [place] [address] [facility] [address] [place] [phone] Dale Bauman MD [address] [place], [place] [phone] 08/26/2025 4:00 PM EST Office Visit Bariatric Surgery - [place] [address] [facility] [address] [place] [address] Tiffanie Garcia MD [address] [place] [phone] Health Maintenance Due Date Last Done Comments Colorectal Cancer Screening: Colonoscopy 1974 Hepatitis B Vaccines (1 of 3 - 19+ 3-dose series) 1993 Pneumococcal Vaccine: 50+ Years (1 of 2 - PCV) 1993 HIV Screening 06/24/2022 Hepatitis C Screening 06/24/2022 Medicare Annual Wellness Visit 06/24/2022 Social Influencers of Health Screening 06/24/2022 Depression Screening 07/17/2024 RSV Immunization Adult Patients (1 - Risk 50-74 years 1-dose series) 2024 Zoster Vaccines (1 of 2) 2024 DTaP,Tdap,and Td Vaccines (2 - Td or Tdap) 12/15/2024 12/15/2014 COVID-19 Vaccine ( - 2024- season) 2025 Influenza Vaccine (#1) 2025 , 05/21/2014, 04/12/2012 Lung Cancer Screening (Low Dose CT) 12/10/2025 12/10/2024 Breast Cancer Screening 03/13/2027 03/13/20 25, 03/11/2024, 03/11/2024, Additional history exists Cholesterol Screening [...] Encounter for screening mammogram for breast cancer CT LUNG SCREENING Routine 12/10/2024 2:3 8 [...] An annual bilateral screening mammogram. Mammo Location: [facility], [address] [place] [address], [phone], . -------- FINAL REPORT -------- Dictated By: oSnia Valdivia Dictated Date: 03/15/2025 13:49 ET Assigned Physician: Sonia Valdivia Reviewed and Electronically Signed By: Sonia Valdivia Signed Date: 03/15/2025 13:52 ET Workstation ID: [id number] Transcribed By: Self Edit Transcribed Date: 03/15/2025 [...] There are scattered areas of fibroglandular density. us Misti Perkins MD IMG BI PROCEDURES Final Result * CT Lung Screening (12/10/2024 2:38 PM [...] Signed Date: 12/10/2024 15:26 ET Workstation ID: [id number] Transcribed By: Self Edit Transcribed Date: 12/10/2024 [...] Signed Date: 12/10/2024 15:26 ET Workstation ID: [id number] Transcribed By: Self Edit Transcribed Date: 12/10/2024 15:23 ET us Fina Sebastian MD IMG CT PROCEDURES Final Result * HPV with reflex genotype (11/20/2024 1:39 PM EDT) Pathologist [facility] HPV Negative Negative LAB MICROBIOLOGY METHOD 11/22/2024 8:52 AM EDT [facility] Brushing/Spatula Cervix uteri structure / Unknown 11/20/2024 1:39 PM EDT 11/21/2024 7:31 AM EDT [place] LAB MOLECULAR DIAGNOSTICS ORD ERABLES Final Result [facility] [address] [place] [address], [place] [phone] * (ABNORMAL) Lipid panel with reflex to direct LDL (09/26/2024 8:49 AM EDT) Cholesterol 217(H) 0 - 200 mg/dL LAB CHEMISTRY METHOD 09/26/2024 1:06 PM EDT [facility] Triglycerides 138 0 - 150 mg/dL LAB CHEMISTRY METHOD 09/26/2024 1:06 PM EDT [facility] HDL 58 >=40 mg/dL LAB CHEMISTRY METHOD 09/26/2024 1:06 PM EDT [facility] LDL Calculated 131(H) 0 - 100 mg/dL LAB CHEMISTRY METHOD 09/26/2024 1:06 PM EDT [facility] VLDL Cholesterol Marcial 27.6 mg/dL LAB CHEMISTRY METHOD 09/26/2024 1:06 PM EDT [facility] Non HDL Chol. (LDL+VLDL) 159(H) <145 mg/dL LAB CHEMISTRY METHOD 09/26/2024 1:06 PM EDT [facility] Chol/HDL Ratio 3.7 0.0 - 4.4 LAB CHEMISTRY METHOD 09/26/2024 1:06 PM EDT [facility] Blood Venous blood specimen / Unknown Venipuncture / Unknown 09/26/2024 8:49 AM EDT 09/26/2024 8:49 AM EDT us Misti Perkins MD LAB BLOOD ORDERABLES Final Resul t [facility] (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
--- OUTSIDE RECORDS SUMMARY | 2025-05-28 15:25 | XMS_ITS | Clinical Summary ---
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
== END 2025-05-28 13:48 | disposition home or self-care (01) ==
LOC: HO.HSMC 12:48
PROVIDERS: Visit Provider Physician Assistant Medical
DX: G47.19 Other hypersomnia (principal); G47.61 Periodic limb movement disorder; G25.81 Restless legs syndrome; F32.A Depression, unspecified; R53.83 Other fatigue; F51.01 Primary insomnia; G47.21 Circadian rhythm sleep disorder, delayed sleep phase type; R40.0 Somnolence
CPT/HCPCS: 99214

== ENCOUNTER → 2025-05-28 12:47 | Outpatient (BNVA) | payer OTHER, SELFPAY | PROVIDERS: Visit Provider Physician Assistant Medical | DX: G47.19 Other hypersomnia (principal); G47.00 Insomnia, unspecified; G47.61 Periodic limb movement disorder; G25.81 Restless legs syndrome; F32.A Depression, unspecified; R53.83 Other fatigue; F51.01 Primary insomnia; G47.21 Circadian rhythm sleep disorder, delayed sleep phase type; R40.0 Somnolence; Z79.899 Other long term (current) drug therapy; Z71.89 Other specified counseling | CPT/HCPCS: 99212 ==